=== PATIENT | male | born 1975 | race Caucasian/White ===

== ENCOUNTER 2017-08-24 14:27 | Inpatient (IN) | payer BC ==
[~2017-08-24] VITALS: Ht 180.3 cm; Wt 120.2 kg
--- NOTE | ~2017-08-24 | S ---
[facility] [place] [address] SURGICAL PATH RPT PROCEDURE Name: STEVE SLATER Room #: 459-P [facility] IN M.R.#: [id number] Admission: 08/24/17 Date of : 73 Discharge: 08/26/17 Report #: [id number] Path Case #: [id number] PATHOLOGY REPORT COLLECTION DATE: 08/25/2017 RECEIVED DATE: 08/25/2017 SUBMITTING PHYS: Dr. Allen Liu OTHER PHYS: Dr. Aki Rowe SPECIMEN(S) RECEIVED: A.Duodenum B.Antrum * * * * * * * * * * * * FINAL DIAGNOSIS: A. "Duodenum", biopsy: - Small bowel mucosa with minimal histologic alteration; no evidence of celiac sprue. B. "Antrum", biopsy: - Gastric antral-type mucosa with mild reactive changes and minimal chronic inflammation. - Negative H. pylori immunohistochemical stain (block B1); control reacted appropriately. (CLW:janet; 08/26/2017) PATHOLOGIST: Tania Narvaez M.D. REPORT ELECTRONICALLY SIGNED BY: Tania Narvaez M.D. DATE/TIME: 08/26/2017 14:27 * * * * * * * * * * * * GROSS PATHOLOGY: A. Received in formalin labeled "Steve Slater, duodenum," are two segments of zamora soft tissue measuring 0.5 x 0.4 x 0.2 cm in aggregate dimensions and ranging from 0.3 to 0.4 cm in maximum dimension. The specimen is submitted entirely in cassette A1. B. Received in formalin labeled "Steve Slater, antrum," are two segments of zamora soft tissue measuring 0.6 x 0.4 x 0.1 cm in aggregate dimensions and ranging from 0.3 to 0.6 cm in maximum dimension. The specimen is submitted entirely in cassette B1. (CAA; 08/25/2017) CLINICAL HISTORY: Anemia, melena, hiatal hernia, duodenitis, gastritis with linear erosions [address] [address] SURGICAL PATH RPT PROCEDURE Name: STEVE SLATER L Room #: 459-P DIS IN M.R.#: [id number] Admission: 08/24/17 Date of : 73 Discharge: 08/26/17 Report #: [id number] Path Case #: [id number] A. R/O celiac disease B. R/O H. pylori INITIAL CPT CODE(S): A; 72174 B; 01611, 51691 Professional services performed by [facility] at [address] , [place] [address] Technical services performed by [facility] at [address] [place] [address], [facility] [address], [place] [address]. [facility] [address] [address] PHONE: [phone] DIRECTOR: Manan Mcconnell M.D. * * * END OF REPORT * * *
--- NOTE | ~2017-08-24 | HC ---
[facility] [place] [address] CONSULTATION Name: DAVIS CONNELL Room #: 459-P [facility] IN ..#: [id number] Admission: 08/24/17 Attend Phys: Aki Shay DO Discharge: 08/26/17 Date of : 73 Report #: [id number] THIS REPORT FOR: //name// CC: Aki Rowe DATE OF SERVICE: 08/25/2017 REFERRING PROVIDER: Allen Liu MD. REASON FOR CONSULT: Large hiatal hernia with Joseph's ulcerations. HISTORY OF PRESENT ILLNESS: The patient is a 42-year-old -Thai male who has been admitted now for a second time due to severe anemia with findings of a large hiatal hernia and Joseph's ulcerations. Prior to his initial admission 2 years ago, he was placed on iron and PPI therapy. The patient's hemoglobin had normalized, however, recently he was found to have increasing lethargy and shortness of breath and presented for repeat evaluation where his hemoglobin was found once again to be 5.7. The patient was given transfusion and an iron infusion and has now had his hemoglobin improved up to 7.0 and underwent an EGD showing Joseph's ulcerations. A full GI workup with upper and lower endoscopy 2 years ago showed no evidence of erosions and M2 study was negative as well. I am now asked to evaluate for possible hiatal hernia repair with an antireflux procedure. PAST MEDICAL HISTORY: GERD and orthopedic surgeries. HOME MEDICATIONS: Zantac, iron and Protonix. ALLERGIES: No known drug allergies. SOCIAL HISTORY: The patient does not smoke cigarettes, does smoke marijuana routinely and from her recreational standpoint and drinks alcohol, but never to excess and only in social situations. FAMILY HISTORY: Reviewed and noncontributory. REVIEW OF SYSTEMS: GENERAL: The patient denies nocturnal fevers or chills. HEENT: No change in vision, change in hearing. NECK: No swelling or difficulty swallowing. HEART: No chest pain or palpitations. LUNGS: No cough or shortness of breath. ABDOMEN: No nausea, no vomiting. GENITOURINARY: No dysuria or hematuria. ENDOCRINE: No polyuria, polydipsia. [facility] [address] [address] CONSULTATION Name: DAVIS CONNELL Room #: 459-[facility] IN .R.#: [id number] Admission: 08/24/17 Attend Phys: Aki Shay DO Discharge: 08/26/17 Date of : 73 Report #: [id number] HEMATOLOGIC: No history of bleeding or easy bruising. EXTREMITIES: No history weakness or limited range of motion. NEUROLOGIC: No history of syncope or near syncopal episodes. SKIN AND INTEGUMENT: No history of abnormal lesions or moles. PSYCHIATRIC: No history of anxiety or depression. PHYSICAL EXAMINATION: VITAL SIGNS: Temperature 98.4, pulse 82, respirations 20, blood pressure 125/67. He is 5 feet 11 inches tall and weighs 265 pounds. GENERAL: Alert and oriented, in no acute distress. HEENT: Normocephalic, atraumatic. Pupils equal, round, reactive to light. NECK: Supple, without lymphadenopathy. Trachea midline. HEART: Regular rate and rhythm. LUNGS: Clear to auscultation bilaterally. ABDOMEN: Soft, nontender, nondistended. GENITOURINARY: Normal external male genitalia. EXTREMITIES: No clubbing, cyanosis or edema. NEUROLOGIC: Cranial nerves 2-12 are grossly intact. PSYCHIATRIC: Normal mood and affect. SKIN AND INTEGUMENT: No abnormal lesions or moles. LABORATORY AND X-RAY DATA: CBC shows white blood cell count of 7.6, hemoglobin 7.0, platelets 338,000. Creatinine 0.9. EGD report was reviewed with Dr. Liu showing hiatal hernia with Joseph's ulcerations. ASSESSMENT AND PLAN: A 42-year-old -Thai male with longstanding gastroesophageal reflux disease and findings of a hiatal hernia with Joseph's ulcerations and now a second admission for severe anemia. The patient's thorough GI workup otherwise has been negative. The patient does have complaints of medically recalcitrant gastroesophageal reflux disease symptoms even while on PPI and H2 kory therapy. In light of his chronic recurrent anemia and ongoing symptoms, the patient appears to be an excellent candidate for a laparoscopic paraesophageal hernia repair and an antireflux procedure concurrently. In order to proceed forward with that, the patient will need to complete further testing and I will obtain an upper GI swallow to delineate his anatomy as well as ask Dr. Liu to perform esophageal manometry testing as an outpatient once dismissed. Provided the patient has normal esophageal motility, he would be a candidate for paraesophageal hernia repair with LINX device implantation for antireflux purposes. If he has abnormal motility showing dysmotility, the patient would then therefore likely necessitate a Toupet fundoplication rather than LINX device implantation at the time of his paraesophageal hernia repair. Nonetheless, I will follow closely and leave any further recommendations in the patient's chart as appropriate. I did spend 63 minutes with the patient today, gathering his history, performing a thorough physical exam, reviewing his imaging and endoscopy results with him as well as delineating the etiology, pathophysiology and natural history of hiatal hernia [address] [address] CONSULTATION Name: DAVIS CONNELL Room #: 459-P [facility] IN M.R.#: [id number] Admission: 08/24/17 Attend Phys: Aki Shay DO Discharge: 08/26/17 Date of : 73 Report #: [id number] formation as well as the various options of surgical repair moving forward as delineated above. <ELECTRONICALLY SIGNED> By: Nile Olmos MD, FACS 08/26/17 1934 0934 1111 Nile Olmos MD, FACS /nt
--- NOTE | ~2017-08-24 | EKG ---
[address] [place] [address] ELECTROCARDIOGRAM REPORT Name: DAVIS CONNELL Room #: 459-P ADM IN M.R.#: [id number] Admission: 08/24/17 Attend Phys: Aki Shay DO Discharge: Date of : 73 Report #: [id number] THIS REPORT FOR: //name// 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
[~2017-08-24 14:27] MED LIST: IRON325 M1 PO; PROTONIX40 M1 PO
[2017-08-24 14:33] VITALS: BP 128/68
[2017-08-24 14:50] LABS: MCHC 29.1 g/dL (28.0-37.0); MCV 69.2 fL (80.0-100.0); WBC 8.5 thou/uL (4.0-11.0)
[2017-08-24 14:51] LABS: MCH 20.1 pg (26.0-34.0); PLATELET COUNT 368 thou/uL (150-400); RBC 2.83 mil/uL (4.50-6.00); RDW 22.6 % (10.5-14.5)
[2017-08-24] MEDS ORDERED: ZANTAC 150MG T150 MG PO (14:54)
[2017-08-24 14:55] LABS: HEMATOCRIT 19.6 % (42.0-52.0); HEMOGLOBIN 5.7 gm/dL (14.0-18.0)
[2017-08-24 15:01] LABS: ANION GAP 5 mmol/L (7-16); BUN 12 mg/dL (7-18); CALCIUM 8.6 mg/dL (8.5-10.1); CHLORIDE 108 mmol/L (98-107); CO2 25 mmol/L (21-32); CREATININE 0.8 mg/dL (0.7-1.3); GLUCOSE 101 mg/dL (74-106); POTASSIUM 3.9 mmol/L (3.5-5.1); SODIUM 138 mmol/L (136-145)
[2017-08-24 15:03] VITALS: BP 120/67
[2017-08-24 15:10] LABS: TROPONIN-I < 0.04 ng/mL (<0.06)
[2017-08-24 15:32] LABS: ABSOLUTE NEUTROPHILS 6.2 thou/uL (1.4-8.2); ANISOCYTOSIS 1+; HYPOCHROMASIA 1+
[2017-08-24 15:33] LABS: MICROCYTES 1+
[2017-08-24 15:34] LABS: PROTIME 10.5 Seconds (9.3-11.4)
[2017-08-24 15:51] VITALS: BP 121/78
[2017-08-24 16:26] VITALS: BP 122/69
[2017-08-24 16:50] VITALS: BP 112/71; BP 117/73
[2017-08-24 20:40] VITALS: BP 109/67; BP 112/71; BP 113/67
[2017-08-25 04:36] VITALS: BP 113/70
[2017-08-25 06:55] LABS: WBC 6.5 thou/uL (4.0-11.0)
[2017-08-25 07:00] LABS: CALCIUM 8.2 mg/dL (8.5-10.1); CREATININE 0.9 mg/dL (0.7-1.3); HEMATOCRIT 22.7 % (42.0-52.0); MCH 22.2 pg (26.0-34.0); MCHC 30.8 g/dL (28.0-37.0); MCV 72.1 fL (80.0-100.0); PLATELET COUNT 338 thou/uL (150-400); POTASSIUM 3.6 mmol/L (3.5-5.1); RBC 3.14 mil/uL (4.50-6.00); RDW 24.3 % (10.5-14.5)
[2017-08-25 07:54] VITALS: BP 125/67
[2017-08-25 08:53] LABS: ABSOLUTE NEUTROPHILS 4.6 thou/uL (1.4-8.2); ANISOCYTOSIS 1+; HYPOCHROMASIA 3+; PLATELET ESTIMATE NORMAL; POLYCHROMASIA 2+
[2017-08-25 15:35] VITALS: BP 125/71
[2017-08-25 19:32] VITALS: BP 127/69
[2017-08-26 04:26] VITALS: BP 138/67
[2017-08-26 06:17] LABS: HEMOGLOBIN 7.4 gm/dL (14.0-18.0); MCHC 31.1 g/dL (28.0-37.0)
[2017-08-26 06:20] LABS: ABSOLUTE NEUTROPHILS 6.1 thou/uL (1.4-8.2); EOSINOPHILS 1.9 % (0.0-3.0); HEMATOCRIT 23.6 % (42.0-52.0); LYMPHOCYTES 17.2 % (24.0-44.0); MCH 22.9 pg (26.0-34.0); MCV 73.5 fL (80.0-100.0); MONOCYTES 7.9 % (1.0-8.0); PLATELET COUNT 352 thou/uL (150-400); RBC 3.22 mil/uL (4.50-6.00); RDW 24.8 % (10.5-14.5); WBC 8.4 thou/uL (4.0-11.0)
[2017-08-26 06:32] LABS: CALCIUM 8.7 mg/dL (8.5-10.1); CREATININE 0.9 mg/dL (0.7-1.3); POTASSIUM 3.3 mmol/L (3.5-5.1)
[2017-08-26 07:03] LABS: ANISOCYTOSIS 2+; HYPOCHROMASIA 2+; LARGE PLATELETS OCCASIONAL; MICROCYTES 1+; POLYCHROMASIA 1+
[2017-08-26 07:42] VITALS: BP 117/78
[2017-08-26] MEDS ORDERED: PANTOPRAZOLE SO40 M1 PO (07:47)
[2017-08-26 09:47] VITALS: BP 117/78
== END 2017-08-26 12:23 | disposition home or self-care (01) | DRG 391 ==
LOC: ER 14:27 → EROBS 15:04 → 4W 15:04
PROVIDERS: Emergency Medicine; Family Medicine
DX: K44.9 Diaphragmatic hernia without obstruction or gangrene (principal); K29.71 Gastritis, unspecified, with bleeding; K25.4 Chronic or unspecified gastric ulcer with hemorrhage; K29.81 Duodenitis with bleeding; I95.1 Orthostatic hypotension; D50.0 Iron deficiency anemia secondary to blood loss (chronic); K21.9 Gastro-esophageal reflux disease without esophagitis; Z79.899 Other long term (current) drug therapy; Z87.81 Personal history of (healed) traumatic fracture
CPT/HCPCS: 10045; 62110; 62900; 70005

== ENCOUNTER 2018-09-20 11:29 | Inpatient (IN) | payer BC ==
[~2018-09-20] VITALS: Ht 180.3 cm; Wt 122.5 kg
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
[~2018-09-20 11:29] MED LIST changes: +PANTOPRAZOLE SO40 M1 PO; +ZANTAC 150MG T150 MG PO
[2018-09-20 11:33] VITALS: BP 143/88
[2018-09-20 12:25] LABS: ANION GAP 7 mmol/L (7-16); BUN 11 mg/dL (7-18); CALCIUM 8.8 mg/dL (8.5-10.1); CHLORIDE 104 mmol/L (98-107); CO2 29 mmol/L (21-32); GLUCOSE 120 mg/dL (74-106); POTASSIUM 4.1 mmol/L (3.5-5.1); SODIUM 140 mmol/L (136-145)
[2018-09-20 12:27] LABS: ABSOLUTE NEUTROPHILS 2.5 thou/uL (1.4-8.2); BASOPHILS 2.1 % (0.0-2.0); EOSINOPHILS 6.1 % (0.0-3.0); HEMATOCRIT 42.9 % (42.0-52.0); LYMPHOCYTES 24.2 % (24.0-44.0); MCH 25.8 pg (26.0-34.0); MCHC 32.7 g/dL (28.0-37.0); MONOCYTES 6.6 % (1.0-8.0); PLATELET COUNT 240 thou/uL (150-400); RBC 5.43 mil/uL (4.50-6.00); RDW 18.2 % (10.5-14.5)
[2018-09-20 12:30] LABS: APTT 24.8 Seconds (24.5-32.8); PROTIME 10.7 Seconds (9.3-11.4)
[2018-09-20 12:34] LABS: TROPONIN-I <0.06 ng/mL (<0.06)
[2018-09-20 15:43] VITALS: BP 137/88
[2018-09-20 16:15] VITALS: BP 158/92
[2018-09-20 17:03] VITALS: BP 128/89
[2018-09-20 19:20] VITALS: BP 128/86
--- NOTE | 2018-09-20 19:57 | NUR ---
ASSUMED PATIENT CARE FROM ED. A&OX4. UP ADLIB. NO N/V OR STOOLS SINCE ARRIVAL TO FLOOR. PATIENT STATES THEY WERE HAVING HEMATEMESIS AND BLACK STOOLS AT HOME. HGB 14. GI CONSULTED AND PLANS TO DO AN EGD TOMORROW. CONSENT SIGNED ON THE CHART. PATIENT WANTING TO DC HOME AFTER EGD.
--- NOTE | 2018-09-21 02:19 | NUR ---
PT AMBULATING TO BATHROOM INDEPENDENTLY AND IS TOLERATING WELL. DENIES PAIN. DENIES NAUSEA. DENIES DARK STOOLS SINCE ARRIVAL. EGD 09/21. RESTING COMFORTABLY. NO NEEDS VOICED. CALL LIGHT WITHIN REACH. WILL CONTINUE TO PROVIDE FREQUENT OBSERVATION.
[2018-09-21 04:07] LABS: CALCIUM 8.2 mg/dL (8.5-10.1); CREATININE 0.7 mg/dL (0.7-1.3); POTASSIUM 3.5 mmol/L (3.5-5.1)
[2018-09-21 04:09] LABS: HEMOGLOBIN 13.1 gm/dL (14.0-18.0); MCH 25.4 pg (26.0-34.0); MCHC 31.9 g/dL (28.0-37.0); MCV 79.5 fL (80.0-100.0); RBC 5.15 mil/uL (4.50-6.00); RDW 18.1 % (10.5-14.5); WBC 5.1 thou/uL (4.0-11.0)
[2018-09-21 05:00] VITALS: BP 140/78
[2018-09-21 07:15] VITALS: BP 128/82
--- NOTE | 2018-09-21 08:05 | NUR ---
PT IS A&0X4, UP AD KLARISSA INDEPENDENTLY, NIGHT STAFF REPORTED PT NEEDS HOME MEDS ENTERED. PT STATES HE WANTS TO BE D/C'D AFTER SCOPE PROCEDURE SO THAT HE CAN ATTEND HIS DAUGHTER'S GRADUATION. ROOM AIR, NOTES OF HIATAL HERNIA W/ CAM EROSIONS, WILL MEDICATE FOR PAIN NEEDED AND WRAP IV FOR EASE OF A QUIET IV PUMP. GAVE MOUTH SWABS FOR COMFORT FROM BEING NPO, WILL CONTINUE TO MONITOR
[2018-09-21] MEDS ORDERED: PROTONIX40 M1 PO (13:45)
[2018-09-21 13:52] VITALS: BP 128/82
--- NOTE | 2018-09-21 17:57 | EKG ---
[address] [place] [address] ELECTROCARDIOGRAM REPORT Name: DAVIS CONNELL JR Room #: 357-P [facility] IN ..#: [id number] ������������������ Admission: 09/20/18 ������������������ Attend Phys: Brian Pollack MD Discharge: 09/21/18 ������������������ Date of : 73 Report #: [id number] ����������������������������������������������������������������� [id number] THIS REPORT FOR: //name// [facility] ED Test Date: 2018-09-20 Test Time: 11:51:47 Pat Name: DAVIS CONNELL Department: Room: [facility] Gender: M 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: kf : 1975 Requested By: Kvng Hearn Order Number: [id number] MD: Hudson Gamble Measurements Intervals [place] Rate: 72 P: 47 OR: 222 QRS: 15 QRSD: 90 T: -4 QT: 376 QTc: 412 Interpretive Statements Sinus rhythm Prolonged OR interval Probable left atrial enlargement Borderline T abnormalities, inferior leads ST elev, probable normal early repol pattern Compared to ECG 08/24/2017 14:41:07 First degree AV block now present T-wave abnormality now present ST (T wave) deviation now present Electronically Signed On 09-21-2018 17:57:17 CDT by Hudson Gamble [email or web address] ��������������������������������������������� <ELECTRONICALLY SIGNED> ���������������������������������������� By: Hudson Gamble MD ��������������������������������������������� 09/21/18 1757 1151 1151 Hudson Gamble MD /EPI
== END 2018-09-21 14:12 | disposition home or self-care (01) | DRG 379 ==
LOC: ER 11:29 → 3W 15:15 → EROBS 15:15 → 3W 16:43
PROVIDERS: Emergency Medicine; ADMIT Hospitalist
PROC: 0DB68ZX Excision of Stomach, Via Natural or Artificial Opening Endoscopic, Diagnostic (ICD-10-PCS; principal; 2018-09-21)
PROC: 0DB28ZX Excision of Middle Esophagus, Via Natural or Artificial Opening Endoscopic, Diagnostic (ICD-10-PCS; principal; 2018-09-21)
PROC: 0DB38ZX Excision of Lower Esophagus, Via Natural or Artificial Opening Endoscopic, Diagnostic (ICD-10-PCS; principal; 2018-09-21)
DX: K25.4 Chronic or unspecified gastric ulcer with hemorrhage (principal); K20.9 Esophagitis, unspecified
CPT/HCPCS: 10879; 62110; 62900

== ENCOUNTER 2018-10-19 10:19 | Emergency (ER) | payer BC ==
[~2018-10-19] VITALS: Ht 180.3 cm; Wt 124.7 kg
[2018-10-19 10:22] VITALS: BP 112/88
[2018-10-19 11:18] LABS: ABSOLUTE NEUTROPHILS 3.8 thou/uL (1.4-8.2); BASOPHILS 0.6 % (0.0-2.0); EOSINOPHILS 3.7 % (0.0-3.0); HEMATOCRIT 44.4 % (42.0-52.0); HEMOGLOBIN 14.1 gm/dL (14.0-18.0); LYMPHOCYTES 21.7 % (24.0-44.0); MCH 25.8 pg (26.0-34.0); MCHC 31.7 g/dL (28.0-37.0); MCV 81.3 fL (80.0-100.0); MONOCYTES 8.9 % (1.0-8.0); PLATELET COUNT 246 thou/uL (150-400); POLYS 65.1 % (36.0-66.0); RBC 5.45 mil/uL (4.50-6.00); WBC 5.9 thou/uL (4.0-11.0)
[2018-10-19 11:24] LABS: CALCIUM 8.9 mg/dL (8.5-10.1); POTASSIUM 3.8 mmol/L (3.5-5.1)
[2018-10-19] MEDS ORDERED: KEFLEX500 M1 PO (12:39)
[2018-10-19] MEDS ORDERED: NAPROSYN500 MG PO (12:39)
[2018-10-19] MEDS ORDERED: TRAMADOL 50 MG50 MG PO (12:40)
== END 2018-10-19 12:52 | disposition home or self-care (01) ==
LOC: ER 10:19
PROVIDERS: Emergency Medicine
DX: M72.2 Plantar fascial fibromatosis (principal); L03.116 Cellulitis of left lower limb; Z77.22 Contact with and (suspected) exposure to environmental tobacco smoke (acute) (chronic)

== ENCOUNTER → 2020-03-22 | Outpatient (CLI) | payer BC ==
[~2020-03-22] MED LIST changes: +KEFLEX500 M1 PO; +NAPROSYN500 MG PO; +PROTONIX40 M2 PO; +TRAMADOL 50 MG50 MG PO
== END ==
LOC: LAB 08:23
PROVIDERS: ATTEND Orthopaedic Surgery
DX: Z01.812 Encounter for preprocedural laboratory examination (principal); Z20.828 Contact with and (suspected) exposure to other viral communicable diseases

== ENCOUNTER → 2020-03-27 | Day surgery (SDC) | payer BC ==
[~2020-03-27] VITALS: Ht 180.3 cm; Wt 130.4 kg
[2020-03-27 13:24] VITALS: BP 135/90
[2020-03-27 15:08] VITALS: BP 135/90
[2020-03-27 15:09] VITALS: BP 135/90
--- NOTE | 2020-03-29 08:16 | O ---
[facility] [place] [address] OPERATIVE REPORT Name: DAVIS CONNELL JR Room #: [facility]#: [id number] Admission: 03/27/20 Attend Phys: Hamilton Morley MD Discharge: Date of : 73 Report #: [id number] THIS REPORT FOR: cc: Ab Rowe MD, Steven A. MD Abraham,Hamilton Maravilla MD ~ CC: Hamilton Rowe DATE OF SERVICE: 03/27/2020 PREOPERATIVE DIAGNOSIS: Left knee medial and lateral meniscus tears. POSTOPERATIVE DIAGNOSES: 1. Left knee medial and lateral meniscus tears. 2. Grade 3 chondromalacia lateral tibial plateau. PROCEDURES: Left knee arthroscopy with partial medial and lateral meniscectomies. SURGEON: Hamilton Morley MD. RESEARCH ASSOC: Kasey Long PA-C. ANESTHESIA: LMA. TOURNIQUET TIME: 14 minutes. ESTIMATED BLOOD LOSS: 5 mL. COMPLICATIONS: None. SPECIMENS: None. CONDITION UPON LEAVING THE OPERATING ROOM: Stable. INDICATIONS FOR PROCEDURE: The patient is a 44-year-old gentleman with left knee pain. He had an MRI scan shown to have tears of his medial and lateral meniscus. He has had a history of a remote open ACL reconstruction. After discussion with him, he elected for left knee arthroscopy with partial medial and lateral meniscectomy and debridement as needed. DESCRIPTION OF PROCEDURE: Risks, benefits, alternatives, complications were discussed in detail with the patient including but not limited to risk of anesthesia, risk of damage to nerves, arteries, blood vessels, risk for infection, bleeding, risk for continued knee pain, need for reoperation. [facility] [address] [place] [address] OPERATIVE REPORT Name: DAVIS CONNELL JUDITH KYA Room #: REG [facility].#: [id number] Admission: 03/27/20 Attend Phys: Hamilton Morley MD Discharge: Date of : 73 Report #: [id number] Informed consent was obtained from the patient. Left knee was appropriately marked in the preoperative holding area. IV Ancef was given for preoperative antibiotics. He was brought to the operating room and placed in the supine position on the operating room table. LMA anesthesia was induced without complication. Tourniquet was placed on the left thigh. Left lower extremity was prepped and draped in normal sterile fashion. Timeout was performed properly identifying the patient and procedure as well as the instrumentation. All in the operating room were in agreement. Left lower extremity was exsanguinated, tourniquet was inflated. Tourniquet time was 14 minutes. Standard anterolateral portal was established with 11 blade through the skin. Arthroscope was introduced into the patellofemoral compartment, diagnostic arthroscopy was undertaken. Patellofemoral compartment was visualized and found to have intact patellofemoral compartment. Medial gutter was visualized and found to be without pathology. Medial compartment was visualized and medial portal was established under arthroscopic visualization. Probe was introduced into the medial compartment and there was a radial type tear of the posterior horn of the medial meniscus with unstable meniscal flap. This was debrided back with oscillating shaver. Notch was visualized and found to have an intact ACL reconstruction, although this was more lax than what would be considered an anatomic. Lateral compartment was visualized and found to have inner margin fraying of the lateral meniscus. This was smoothed back with arthroscopic shaver. There was also grade 3 chondromalacia lateral tibial plateau. Scope was then placed back in the patellofemoral compartment and all fluid was allowed to drain from the knee. Knee was injected with 10 mL of 0.5% Marcaine. Incision was closed with 3-0 nylon. Soft dressing of Adaptic, 4 x 4, Webril, Ricky wrap were applied. The patient tolerated this procedure well and went to recovery room under care of Anesthesia postoperatively. <ELECTRONICALLY SIGNED> By: Hamilton Morley MD 03/29/20 0816 1535 1605 Hamilton Morley MD /nt
== END | disposition home or self-care (01) ==
LOC: OR 10:01
PROVIDERS: ATTEND Orthopaedic Surgery
DX: M25.562 Pain in left knee (principal); M23.222 Derangement of posterior horn of medial meniscus due to old tear or injury, left knee; M23.262 Derangement of other lateral meniscus due to old tear or injury, left knee; M94.262 Chondromalacia, left knee; K21.9 Gastro-esophageal reflux disease without esophagitis; Z98.890 Other specified postprocedural states; Z79.899 Other long term (current) drug therapy; Z87.891 Personal history of nicotine dependence
CPT/HCPCS: 50010; 50101; 50405; 56526; 57103; 57180; 62110; 62900; 70005

== ENCOUNTER 2020-10-08 15:33 | Emergency (ER) | payer BC ==
[~2020-10-08] VITALS: Ht 180.3 cm; Wt 122.5 kg
[2020-10-08 16:30] VITALS: BP 146/94
== END 2020-10-08 16:56 | disposition home or self-care (01) ==
LOC: ER 15:33
DX: S56.09 Other injury of flexor muscle, fascia and tendon of thumb at forearm level (principal); K21.9 Gastro-esophageal reflux disease without esophagitis; Z98.890 Other specified postprocedural states; W26.8XXA Contact with other sharp object(s), not elsewhere classified, initial encounter; Y93.89 Activity, other specified; Y92.89 Other specified places as the place of occurrence of the external cause; Y99.8 Other external cause status

== ENCOUNTER 2020-12-27 13:37 | Emergency (ER) | payer BC ==
[~2020-12-27] VITALS: Ht 180.3 cm; Wt 127.0 kg
[2020-12-27 13:41] VITALS: BP 162/97
== END 2020-12-27 14:52 | disposition home or self-care (01) ==
LOC: ER 13:37
DX: H57.89 Other specified disorders of eye and adnexa (principal); Z53.21 Procedure and treatment not carried out due to patient leaving prior to being seen by health care provider